=== PATIENT | male | born 1950 | race Caucasian/White ===

== ENCOUNTER 2022-06-02 12:10 | Emergency (ER) | payer MEDICARE, SELFPAY ==
[2022-06-02] VITALS (11 sets, daily range): BP systolic 114–131; BP diastolic 64–84; PULSE 0–86; RESP 11–27; TEMP 36.4; O2SAT 96–100
--- NOTE | ~2022-06-02 | XR_ITS ---
EXAMINATION: XR chest 2V Exam Date/Time: 06/02/2022 19:55 GEOGRAPHIC INFORMATION SYSTEM SURVEYOR HISTORY: cough, SOB, fever Comparison: None available. RESULT: Lines, tubes, and devices: None. Lungs and pleura: Relative areas of lucency in the upper and mid lungs with peripheral reticular opa cities and bilateral medial lower lung atelectasis/scar. No focal consolidation. No pneumothorax. Cardiomediastinal silhouette: Stable. Other: No acute osseous or upper abdominal finding. IMPRESSION: Chronic appearing senescent and possibly emphysematous changes without definite acute cardiopulmonary process. Reviewed, dictated and finalized at location K. RAPHIC INFORMATION SYSTEM SURVEYOR
--- NOTE | 2022-06-02 19:26 | ECG_ITS ---
Measurements Intervals [place] Rate: 65 P: 26 VA: 132 QRS: -34 QRSD: 89 T: 27 QT: 396 QTc: 412 Interpretive Statements SINUS RHYTHM BASELINE ARTIFACT LEFT AXIS DEVIATION LOW-VOLTAGE QRS IN PRECORDIAL LEADS BORDERLINE ECG NO PREVIOUS ECG AVAILABLE FOR COMPARISON Electronically Signed On 06-05-2022 17:35:47 [employer] by Maikol Dc M.D.
--- NOTE | 2022-06-02 19:27 | ED.GENADULT ---
HPI - General Adult General Chief complaint: Dizziness Stated complaint: dizziness x 4 days, sore throat, cough Time Seen by Provider: 06/02/22 19:20 History of Present Illness HPI narrative: Patient is a 72-year-old male here for evaluation of productive cough, chills, fatigue and body aches for the past 4 days. Denies sick contacts. He has not taken his temperature at home. States that he sometimes feels short of breath when he coughs. Has not attempted any medicine for symptoms. He did develop some indigestion type pain while sitting in the waiting room. Related Data Home Medications Medication Instructions Recorded Confirmed multivitamin 1 tablet PO DAILY 04/08/19 05/25/22 finasteride 1 mg tablet 1 mg PO DAILY 11/08/20 05/25/22 Allergies Allergy/AdvReac Type Severity Reaction Status Date / Time No Known Allergies Allergy Verified 06/02/22 12:30 Review of Systems Review of Systems: Gen.: Reports chills Eyes: Denies eye pain or visual change ENT: Reports congestion and sore throat Respiratory: Reports shortness of breath and cough CV: Denies chest pain or palpitations GI: Denies abdominal pain nausea, emesis or diarrhea denies burning, urgency, frequency or hematuria Musculoskeletal: Denies back pain or muscle pain Neuro: Denies numbness, tingling, weakness or focal weakness Skin: Denies rash Except as documented, all other systems reviewed and negative [facility] Past Medical History Medical History (Updated 06/02/22 @ 20:34 by Ashli Avalos PA-C) BPH (benign prostatic hyperplasia) Drinks hard liquor Elevated prostate specific antigen [PSA] Family History Family History Father Family history of malignant neoplasm of thyroid Family history of throat cancer, Onset Age: 66 Patient's father is Other Family history of malignant neoplasm Social History Social History (Updated 05/25/22 @ 14:24 by Ifeoma Marmolejo CMA) Smoking status: Never smoker Second hand tobacco smoke exposure: No Alcohol intake: former Substance use: never Lack of Transportation: No Lack of Food: Never True Current Housing: I Have Housing Concerned About Future Housing: No Difficulty Paying Gas/Electric Bills: No Difficulty Paying for Meds: No Currently Unemployed: No Education: Bachelor's Degree Difficulty w/ Childcare or Family Care: No Gender identity (if verbalized by the patient): Male Exam Narrative: APPEARANCE: Well appearing, no pain in distress, well-nourished. Head: Normocephalic and atraumatic. EYES: PERRLA/EOMI, conjunctivae clear NOSE: No nasal drainage EARS: External ear normal in appearance THROAT: Mucous membranes are dry. Posterior oropharynx is erythematous. NECK: Supple. No adenopathy, no masses. RESPIRATORY: Airway patent, respirations nonlabored. Clear to auscultation bilaterally, no rales, rhonchi, wheezing. CARDIOVASCULAR: Regular rate and rhythm without murmurs, rubs, or gallops. ABDOMINAL: Normoactive bowel sounds. Soft, nontender, nondistended. No rebound tenderness or guarding. MUSCULOSKELETAL: Extremities are warm and well-perfused. Moves all extremities well. No edema. NEURO: Normal speech. No focal neurologic deficits. SKIN: Skin is warm and dry. No rashes. PSYCHIATRIC: Normal affect/mood. Course Vital Signs Vital signs: Vital Signs Temperature 97.6 F 06/02/22 12:30 Pulse Rate 85 06/02/22 12:30 Respiratory Rate 18 06/02/22 12:30 Blood Pressure 117/64 06/02/22 12:30 Pulse Oximetry 97 06/02/22 12:30 Oxygen Delivery Room Air 06/02/22 12:30 Temperature 97.6 F 06/02/22 12:30 Pulse Rate 64 06/02/22 20:30 Respiratory Rate 18 06/02/22 20:30 Blood Pressure 128/84 06/02/22 20:30 Pulse Oximetry 99 06/02/22 20:30 Oxygen Delivery Room Air 06/02/22 12:30 Medical Decision Making MDM Narrative Medical decision making narrative: Aleah
[2022-06-02 19:44] LABS: Basophils Percent Auto 0.4 % (0.2-1.2); Hematocrit 40.6 % (42.0-52.0); Hemoglobin 13.3 g/dL (14.0-18.0); Immature Granulocyte Absolute 0.01 K/mm3 (0.00-0.031); Immature Granulocyte Percent A 0.2 % (0-0.5); Lymphocytes Absolute Auto 1.06 K/mm3 (0.9-3.2); Lymphocytes Percent Auto 22.2 % (18.3-44.2); Mean Corpuscular HGB Conc 32.8 g/dl (32-36); Mean Corpuscular Hemoglobin 29.5 pg (26-34); Mean Platelet Volume 10.8 fl (7.4-10.4); Monocytes Absolute Auto 0.5 K/mm3 (0.1-0.6); Monocytes Percent Auto 11.3 % (2.6-8.5); Neutrophils Absolute Auto 3.1 K/mm3 (1.3-6.7); Neutrophils Percent Auto 65.9 % (45.5-73.1); Platelet Count Result 190 k/mm3 (150-375); Red Blood Count 4.51 M/mm3 (4.6-6.20); Red Cell Distribution Width 13.1 % (11.5-14.5); White Blood Count 4.8 K/mm3 (4.5-10.0)
[2022-06-02] MEDS: SODIUM CHLORIDE 0.9% IV 1,000 ML 999 ML IV CONT (19:51)
[2022-06-02] MEDS: ACETAMINOPHEN 325 MG TABLET 650 MG PO (19:51)
[2022-06-02 19:59] LABS: Alanine Aminotransferase 27 U/L (6-50); Albumin Level 4.2 g/dL (3.5-5.1); Alkaline Phosphatase 74 U/L (38-126); Anion Gap 7 mmol/L (8-16); Aspartate Amino Transferase 42 U/L (17-59); Bilirubin,Total 0.6 mg/dL (0.2-1.3); Blood Urea Nitrogen 21 mg/dL (9-20); Calcium 8.9 mg/dL (8.4-10.2); Carbon Dioxide 31 mmol/L (22-30); Chloride 97 mmol/L (98-107); Estimated CRCL calculation 71 ml/min; Estimated Glomerular Filt Rate > 60; Glucose 105 mg/dL (65-110); Potassium 3.9 mmol/L (3.4-5.0); Sodium 135 mmol/L (137-145)
[2022-06-02 20:11] LABS: Troponin I < 0.012 ng/mL (0.000-0.034)
[2022-06-02 20:29] LABS: Influenza A QL RT-PCR Positive (Negative); Influenza B QL RT-PCR Negative (Negative); SARS-CoV-2 RNA PCR Negative
== END 2022-06-02 21:23 | disposition home or self-care (01) ==
PROVIDERS: Emergency Provider Physician Assistant; PCP Internal Medicine
DX: J10.1 Influenza due to other identified influenza virus with other respiratory manifestations (principal); Z20.822 Contact with and (suspected) exposure to COVID-19; N40.0 Benign prostatic hyperplasia without lower urinary tract symptoms
CPT/HCPCS: 36415; 71046; 80053; 84484; 85025; 87636; 93005; 96360; 99284; A9270; J7030

== ENCOUNTER 2024-12-22 11:24 | Outpatient (CLI) | payer MEDICARE, SELFPAY ==
--- OUTSIDE RECORDS SUMMARY | 2024-12-22 11:40 | XMS_ITS | Continuity of Care Document ---
Author Organization [facility] Address [address] [place] [address] [address] [place] [address] Phone Care Team Providers Care Cafeteria Team Leader Name Role Phone Gracie Malloy Unavailable Unavailable Procedures Procedure Date Office/outpatient Visit, Est Eye Exam, New Patient Advance Directives Directive Yes / No Effective Date File Name No Information Encounters Encounter Description Practice Location Reason(s) For Visit Diagnoses Date Provider Providers Copied on Encounter Office/outpat ient Visit, Est [facility], [address] [place] [address] [address], [place], [place], [id number], tel:[phone] [facility] No Information 0-[address]man. [address] , [address], [place], [place], [facility], [place]. tel:[phone] [facility], [address] [place] [address] [address], [place], [place], [id number], tel:[phone] [facility] No Information [address] , [address], [place], [address], [place]. tel:[phone] Family History Family Member Type Diagnosis Age At Onset No Information Payers Payer name Insurance type Covered libertarian ID Authoriza tion(s) No Information Social History Type Description Quantity Date Captured Comments Sex Male Smoking Status No Information Chief Complaint And Reason For Visit No Information Reason For Referral Reason For Referral No Information History Of Present Illness Encounter Date Complaint History Of Prese nt Illness No Information Functional Status Date Functional Assessmen t No Information Instructions Date Instruction Additional Infor mation No Information Assessments Type Assessment Date No Information Patient Care Teams Name Effective Dates (start - stop) Status Members No Information
--- OUTSIDE RECORDS SUMMARY | 2024-12-22 11:40 | XMS_ITS | Clinical Summary ---
Author Organization [facility] Address [address] [place] [address] Care Team Providers Care Power Reactor Supervisor Name Role Phone Steve Gomez DO Primary Care Provider [phone] Jeana Currie MD Unavailable [phone] Source Comments [facility],non-owned Affiliates and Associated Physician Practices is amultiple site organization consisting of ambulatory clinics and hospital sitesin [place], [place], [place] and [place]. This disclosure is being madepursuant to the Care Everywhere program and may not contain all information available regarding this patient. Last updated 18.[facility] Allergies No known active allergies Medications * Be aware that medications may not be up to date on this document. Alwaysverify current medications with the patient. Multiple Vitamins-Minera ls (MULTIVITAMIN ADULTS PO) Active omeprazole (PriLOSEC) 20 MG capsule 3 Active triamcinolone acetonide (Kenalog) 0.1 % cream Apply 1 Application to affected area 2 times daily 4 Active tamsulosin (Flomax) 0.4 MG capsule Take 1 (one) capsule by mouth 2 times daily At the same time every day after a meal. 180 capsule 3 4 Active finasteride (Proscar) 5 MG tablet Take 1 (one) tablet by mouth once daily 90 tablet 3 4 Active Active Problems Problem Noted Date Diagnosed Date Prostate cancer 06/29/2022 Cancer Staging:Clinical stage from 06/29/2022:Stage I(cT1c, cN0, cM0, PSA: 8.7, Grade Group: 1) - Signed by Mendoza Casanova MD on 06/29/2022 Family History Medical History Relation Name Comments Cancer - Prostate Brother Cancer - Thyroid Father Hypertension Mother Relation Name Status Comments Brother Alive Father Mother Social History Tobacco Use Types Packs/Day Years Used Date Smoking Tobacco: Never Smokeless Tobacco: Never Tobacco Cessation:Counseling Given: Not Answered Alcohol Use Standard Drinks/Week Comments Yes 0 (1 standard drink = 0.6 oz pur e alcohol) occasional AUDIT-C Answer Date Recorded Q1: How often do you have a drink containing alc ohol? 2-3 times a week 08/22/2022 Q2: How many drinks containi ng alcohol do you have on a typical day when you are drinking? 1 or 2 08/22/2022 Q3: How often do you have si x or more drinks on one occasion? 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 Not on file Not on file Not on file Last Filed Vital Signs Vital Sign Reading Time Taken Comments Blood Pressure 134/84 04/07/2024 10:38 AM CDT Pulse 81 04/07/2024 10:38 AM CDT Temperature 36.4 C (97.6 F) 08/22/2022 8:55 AM CDT Respiratory Rate 16 08/22/2022 8:55 AM CDT Oxygen Saturation 93% 04/07/2024 10:38 AM CDT Inhaled Oxygen Concentration - - Weight 94.3 kg (208 lb) 04/07/2024 10:38 AM CDT Height 185.4 cm (6' 1) 04/07/2024 10:38 AM CDT Body Mass Index 27.44 04/07/2024 10:38 AM CDT Plan of Treatment Health Maintenance Due Date Last Done Comments HEPATITIS C SCREENING 01/31/1966 DTAP/TDAP/TD VACCINES (1 - Tdap) 02/04/1967 PNEUMOCOCCAL VACCINE 50+ (1 of 1 - PCV) 02/04/1998 ZOSTER VACCINE (1 of 2) 02/04/1998 Respiratory Syncytial Virus (RSV) Vaccine Pt: or over 60 yrs (1 - 1-dose 75+ series) 02/04/2023 COVID-19 VACCINE (1 - 2023-2 5 season) 2024 DEPRESSION SCREENING 06/10/2024 06/27/2022 MEDICARE AWV CALENDAR YEAR 2024 INFLUENZA VACCINE (#1) 2025 HEPATITIS B VACCINE Aged Out No longe r eligible based on patient's age to complete this topic HIB VACCINE Aged Out No longer eligi ble based on patient's age to complete this topic HPV VACCINE Aged Out No longer eligi ble based on patient's age to complete this topic MENINGOCOCCAL (Group B) VACC INE SHARED DECISION-MAKING Aged Out No longer eligibl e based on patient's age to complete this topic MENINGOCOCCAL GROUPS A/C/Y/W VACCINE Aged Out No longer eligible b ased on patient's age to complete [place] [address] AETNA MEDICARE ADV Care Teams Power Reactor Supervisor Relationship Specialty Start Date End Date Steve Gomez DO [address] [place], [place] [phone] PCP - General Internal Medicine 07/18/22 Jeana Currie MD [facility] [address] [place] [phone] Physician Urology 09/13/23
== END 2024-12-22 11:25 | disposition home or self-care (01) ==
PROVIDERS: PCP Nurse Practitioner; Visit Provider Surgery
DX: Z01.818 Encounter for other preprocedural examination (principal); K40.90 Unilateral inguinal hernia, without obstruction or gangrene, not specified as recurrent
CPT/HCPCS: 36415; 86850; 86900; 86901

== ENCOUNTER 2024-12-25 00:24 | Day surgery (SDC) | payer MEDICARE, SELFPAY ==
--- NOTE | 2024-12-21 10:59 | PC.NURSE ---
Report to the Outpatient Waiting Room, entrance under the green pavilion located off [facility], at time _10 AM on date __12/25/24 . Planned Procedure Time: _1200 NOON .? Time changes happen often and if your time is changed the preop area will call you the afternoon before. - You and your visitor will be asked to self-screen and do not enter if you have any COVID symptoms. Please call surgeon if you need to reschedule. - A mask is optional within the hospital at this time. Patients may have clear liquids (water, carbonated beverages, clear teas, apple juice) until 3 hours prior to surgery ( 9AM) with a maximum of 20 ounces. - No food from midnight until time of surgery and no smoking, or chewing tobacco (or any form of nicotine). No chewing gum, candy or mints. Take only the following medications with a SIP of water on the morning of surgery: NONE DO NOT STOP ANY OF YOUR OTHER PRESCRIPTION MEDICATIONS PRIOR TO SURGERY EXCEPT THE FOLLOWING Hold all vitamins and supplements for 3 days per anesthesiologist.LAST DOSE 12/21/24 Medications to discontinue per physician NONE Please no make-up, nail lao, hairspray, perfume, deodorant, or body powder the day of surgery.? No jewelry (including any body piercings) or valuables the day of surgery, leave them at home.? Please take a shower or bath the night before, or the morning of, surgery with an antibacterial soap.? Wear comfortable, loose fitting clothing.? Children are encouraged to wear pajamas. - Jewelry must be removed prior to entering the operating room.? Rings and piercings that are not removed may be cut off. - The hospital will not accept responsibility for valuables.? - Please leave all valuables, including medications, at home the day of surgery. If you are going home after surgery, a licensed sales driver must drive you home.? - NO public transportation without another adult if you receive anesthesia. - We recommend that an adult stay with you for 24 hours following discharge. - We also recommend that you do not drive, make important decision, drink alcoholic beverages, or take any drugs that were not prescribed by your health care provider for at least 24 hours after your discharge time. For Pediatric surgeries, we recommend two adults accompany the child home. Follow any additional instructions given to you from your surgeon. Telephone instructions given to __PATIENT and asked if any additional questions and then verbalized understanding. Patient advised to call surgeon office or pre surgery nurse liaison [phone] if any additional questions.
[2024-12-21 11:14] VITALS: BMI 27.7
[2024-12-25] VITALS (10 sets, daily range): BP systolic 116–146; BP diastolic 60–86; PULSE 63–80; RESP 12–18; TEMP 36.3–36.8; O2SAT 94–100; BMI 26.6
--- OUTSIDE RECORDS SUMMARY | 2024-12-25 00:26 | XMS_ITS | Clinical Summary ---
Author Organization [facility] Address [address] [place] [address] Care Team Providers Care Academic Adviser Name Role Phone Steve Gomez DO Primary Care Provider [phone] Jeana Currie MD Unavailable [phone] Source Comments [facility],non-owned Affiliates and Associated Physician Practices is amultiple site organization consisting of ambulatory clinics and hospital sitesin [place], [place], [place] and [place]. This disclosure is being madepursuant to the Care Everywhere program and may not contain all information available regarding this patient. 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
--- OUTSIDE RECORDS SUMMARY | 2024-12-25 00:26 | XMS_ITS | Continuity of Care Document ---
Author Organization [facility] Address [address] [place] [address] [address] [place] [address] Phone Care Team Providers Care Jukebox Operator Name Role Phone Gracie Malloy Unavailable Unavailable Procedures Procedure Date Office/outpatient Visit, Est Eye Exam, New Patient Advance Directives Directive Yes / No Effective Date File Name No Information Encounters Encounter Description Practice Location Reason(s) For Visit Diagnoses Date Provider Providers Copied on Encounter Office/outpat ient [facility], [address] [place] [address] [address], [place], [place], [id number], tel:[phone] [facility] No Information 0-[address] Mell[address]. [address] , [address], [place], [place], [facility], [place]. tel:[phone] [facility], [address] [place] [address] [address], [place], [place], [id number], tel:[phone] [facility] No Information [address] , [address], [place], [address], [place]. tel:[phone] Family History Family Member Type Diagnosis Age [...]
--- NOTE | 2024-12-25 10:31 | WPDANESEPPF ---
Anes - Initial Pre Proc Eval Procedure: Operation Date: 12/25/24 12:00 Proposed Procedures p Robotic Assisted Laparoscopic Right Inguinal Hernia Repair with Mesh - Prosepr Michelle MD Date/Time: 12/25/24 10:31 Surgeon: Prosper Michelle MD Pre Op Diagnosis: Rt Ing Hernia Patient Data Age: 74 Gender: M Height: 1.85 m Weight: 95.35 kg Allergies Allergy/AdvReac Type Severity Reaction Status Date / Time No Known Allergies Allergy Verified 12/21/24 10:59 Home Medications ?Medication ?Instructions ?Recorded ?Confirmed ?Type multivitamin 1 tablet PO DAILY 04/08/19 12/21/24 History finasteride 1 mg tablet 1 mg PO DAILY 11/08/20 12/21/24 History ascorbate calcium (vitamin C) 500 500 mg PO DAILY 03/03/24 12/21/24 History mg tablet zinc acetate 25 mg (zinc) capsule 25 mg PO DAILY 03/03/24 12/21/24 History (Galzin) finasteride 5 mg tablet 5 mg PO DAILY 12/21/24 12/21/24 History tamsulosin 0.4 mg capsule (Flomax) 0.4 mg PO BID 12/21/24 12/21/24 History Patient hx anesthesia problems: none Family hx anesthesia problems: none Results Review: All pre-operative results and documents have been reviewed as part of the pre-operative evaluation. [facility] Past Medical History Medical History (Updated 11/17/24 @ 10:46 by Mima Varghese CMA) Elevated prostate specific antigen [PSA] Drinks hard liquor BPH (benign prostatic hyperplasia) Surgical History Surgical History (Updated 11/17/24 @ 10:25 by Donna Jamison MA) H/O left inguinal hernia repair Family History Family History Father Family history of malignant neoplasm of thyroid Family history of throat cancer, Onset Age: 66 Patient's father is Other Family history of malignant neoplasm Social History Social History (Updated 11/17/24 @ 10:26 by Donna Jamison MA) Smoking status: Never smoker Second hand tobacco smoke exposure: No Alcohol intake: current Drinks per week: 4 Substance use: never Substance use type: does not use Lack of Transportation: No Lack of Food: Never True Current Housing: I Have Housing Concerned About Future Housing: No Difficulty Paying Gas/Electric Bills: No Difficulty Paying for Meds: No Currently Unemployed: No Education: Bachelor's Degree Difficulty w/ Childcare or Family Care: No Living arrangements: with family Occupation/Education: occupation Gender identity (if verbalized by the patient): Male Spiritual care concerns: No Agree to blood products: Yes Anes - Eval Final PreProcedure Day of Procedure 12/25/24 10:31 Patient weight: overweight Heart: regular rate and rhythm Lungs: clear to auscultation Airway: Mallampati scale class III Neurological: alert and oriented Last oral intake: >/= 8 hours ASA classification: II Emergent: no Anesthetic plan: proceed Anesthesia type and monitoring: general ETT and standard monitoring Results Review: All pre-operative results and documents have been reviewed as part of the pre-operative evaluation. Informed Consent: The patient's anesthetic plan and its attendant risks and benefits were discussed with the patient/family/POA. Questions were solicited and answers provided to the satisfaction of the patient/family/POA.
[2024-12-25] MEDS: LACTATED RINGERS 1,000 ML 30 ML IV CONT ×3 (10:50→17:28)
[2024-12-25] MEDS: ACETAMINOPHEN 500 MG TABLET 1000 MG PO (10:58)
[2024-12-25] MEDS: KETOROLAC 15 MG/ML VIAL (*BKC) IV PUSH (10:58)
--- NOTE | 2024-12-25 12:07 | PM.IMHP ---
H&P: HPI History of Present Illness Date/Time: 12/25/24 12:07 Chief Complaint: Right inguinal hernia Narrative: Dane is a 74 y/o male who presents to the office at the request of Ignacio Weston APRN for an evaluation of a bulge in the groin. Patient reports he has had a reducible bulge in the right groin for approximately 2 months. He reports an intermittent burning pain in the right groin and swelling. He states he tolerates a normal diet and having regular BM's. Patient has history of left inguinal hernia repair and is also undergoing treatment for his prostate. Review of Systems Review of Systems: The remainder of the review of systems to include constitutional, HEENT, cardiovascular, respiratory, GI, , integumentary, musculoskeletal, endocrine, immunologic, hematologic, psychiatric, and neurologic are all negative except for which is mentioned above in the HPI. [facility] Past Medical History Medical History Elevated prostate specific antigen [PSA] Drinks hard liquor BPH (benign prostatic hyperplasia) Surgical History Surgical History H/O left inguinal hernia repair Family History Family History Father Family history of malignant neoplasm of thyroid Family history of throat cancer, Onset Age: 66 Patient's father is Other Family history of malignant neoplasm Social History Social History Smoking status: Never smoker Second hand tobacco smoke exposure: No Alcohol intake: current Drinks per week: 4 Substance use: never Substance use type: does not use Lack of Transportation: No Lack of Food: Never True Current Housing: I Have Housing Concerned About Future Housing: No Difficulty Paying Gas/Electric Bills: No Difficulty Paying for Meds: No Currently Unemployed: No Education: Bachelor's Degree Difficulty w/ Childcare or Family Care: No Living arrangements: with family Occupation/Education: occupation Gender identity (if verbalized by the patient): Male Spiritual care concerns: No Agree to blood products: Yes Meds Home Medications and Allergies Home Medications ?Medication ?Instructions ?Recorded ?Confirmed ?Type multivitamin 1 tablet PO DAILY 04/08/19 12/25/24 History ascorbate calcium (vitamin C) 500 500 mg PO DAILY 03/03/24 12/25/24 History mg tablet zinc acetate 25 mg (zinc) capsule 25 mg PO DAILY 03/03/24 12/25/24 History (Galzin) finasteride 5 mg tablet 5 mg PO DAILY 12/21/24 12/25/24 History tamsulosin 0.4 mg capsule (Flomax) 0.4 mg PO BID 12/21/24 12/25/24 History Allergies Allergy/AdvReac Type Severity Reaction Status Date / Time No Known Allergies Allergy Verified 12/25/24 11:29 Vital Signs Vital Signs - 24 hr 12/25/24 10:01 Temperature 36.3 C L Pulse Rate 79 Respiratory Rate 14 Blood Pressure 139/80 Pulse Oximetry 97 Oxygen Delivery Room Air Exam Const: General: comfortable and no acute distress HENMT: Ears: TM's normal bilaterally Face/Nose/Sinus: Normal nares present Mouth: Yes moist mucous membranes Eyes: General: appearance normal, both eyes and all related structures Sclera: sclerae normal Pupils: Equal, round and reactive pupils present EOM: EOMs intact bilaterally Neck: Neck: supple and no JVD Resp: Effort & Inspection: normal respiratory effort Auscultation: clear to auscultation bilaterally Cardio: Rate: regular rate Rhythm: regular rhythm GI: GI Palp: Yes Soft to palpation, No Firmness to palpation present (GI), No Tenderness to palpation present (GI), No Guarding due to palpation present (GI) and No Hernia present : Other: Bilateral descended testes, no masses. No evidence of left inguinal hernia. Moderate sized reducible right inguinal hernia. Skin: General skin exam: normal color and no rashes or lesions noted Neuro: General: gait normal Speech: normal speech Motor exam (neuro): 5/5 motor strength present throughout Sensory Exam: normal sensation Extrem: General: normal to inspection Psych: Mental Status: mental status grossly normal Affect: normal affect Assessment and Plan Assessment and plan (1) Right inguinal hernia: Code(s): K40.90 - Unilateral inguinal hernia, without obstruction or gangrene, not specified as recurrent Status: Acute Assessment and Plan: I have reviewed office notes from Ignacio Weston APRN prior to patient visit today. I have recommended a robotic assisted laparoscopic right inguinal hernia repair with mesh to be done under general anesthesia as an outpatient. The procedure was discussed in detail including the use of mesh, general description, and usual course of recovery. Risks of recurrence, infection, postop bleeding, prolonged postop pain, possible need to return to surgery were discussed as well. All questions were answered. Patient would like to proceed. Follow-up 2 weeks postoperatively.
--- NOTE | 2024-12-25 12:10 | WPDHPUPDATE1 ---
History and Physical Update Update Date/Time: 12/25/24 12:10 History and Physical has been reviewed, including an updated exam of the patient. There are NO changes in the patient's condition. Risks, benefits, and alternatives have been discussed and questions answered. Patient agrees to proceed with procedure.
[2024-12-25] MEDS: ceFAZolin 2 GM in SODIUM CHLORIDE 0.9% IV 50 ML 100 ML IVPB (13:48)
[2024-12-25] MEDS: BUPivacaine HCL 0.5% 10 ML AMP 30 ML INFILTRATE (14:26)
[2024-12-25] MEDS: LIDO 1%/EPINEPHRINE 1:100,000 20 ML VIAL 30 ML INFILTRATE (14:26)
--- NOTE | 2024-12-25 16:50 | W.PM.PROC2 ---
Procedure Note - Detailed Date of Procedure 12/25/24 Pre-op Diagnosis Reducible right inguinal hernia Post-op Diagnosis Other ( Reducible right inguinal hernia and reducible umbilical hernia) Procedure Performed Robotic assisted laparoscopic right inguinal hernia repair a Bard 3D mid weight mesh Open umbilical hernia repair without mesh. Surgeon Prosper Michelle MD Upholstery Technician Taylor KIMBLE, Celsa KIMBLE Anesthesia General Indications patient is a 74-year-old gentleman who had a previous left inguinal hernia repair with mesh open now presents with a right groin bulge and on exam appears to have a reducible right inguinal hernia. He presents now for robotic assisted laparoscopic right inguinal hernia repair with Bard 3D mesh. Findings Patient moderate-sized indirect right inguinal hernia with large cord lipoma but no incarcerated abdominal viscera. Also noted was a 1cm primary umbilical hernia without incarceration. No evidence of a recurrent left inguinal hernia was seen. Old mesh from the left inguinal hernia repair was noted and in good position. Description of Procedure After informed consent was obtained patient brought to the operating room was placed supine position and general endotracheal anesthesia was administered. The abdomen and bilateral groin regions were then prepped and draped usual sterile fashion. A time-out was then performed correctly identifying the patient as well as procedure to be performed. Site marking was verified he was given perioperative IV antibiotics. I 1st started by entering the abdomen the left upper quadrant utilizing a 5mm Optiview port. Once inside the abdomen insufflated to adequate pneumoperitoneum of 15mmHg of CO2. I had a unobstructed view of the bilateral groins and on the left side there was old mesh in place and a prior open left inguinal hernia repair which had no evidence of recurrence. On the right side there was a indirect right inguinal hernia without incarcerated abdominal viscera. Also noted was a small umbilical hernia with a defect measuring about 1cm which had some preperitoneal fat within it. I then proceeded to place a robotic trocar ports across the mid abdomen under direct visualization. I then switched out the 5mm left upper quadrant trocar port to a 10mm bedside wet process miller head assistant trocar port. The [employer]us robot was then brought to the patient's bedside and docked. Robotic arms were attached robotic ports in the robotic instruments were advanced into the abdomen under direct visualization. I then scrubbed out the procedure sent down at the robotic console to perform the dissection. Utilizing robotic hook cautery I created a preperitoneal flap in the right lower abdominal wall extending the dissection in this preperitoneal plane distally until I encountered the internal ring and the indirect inguinal hernia sac. I then continued dissection of the preperitoneal flap medially and divided the right median umbilical ligament. I then dissected medially down to I reached the pubic tubercle and dissected the bladder away from the right pubic tubercle and pubic symphysis. I dissected down to the space of Retzius for a couple of cm. I then came back and dissected out the indirect inguinal hernia sac out of the inguinal canal. Along with the indirect inguinal hernia sac was a large cord lipoma which was dissected out as well. The cord lipoma was amputated electrocautery and then it was placed into an Endo-Catch bag and brought out through the left upper quadrant trocar port site. The tissue was discarded. I then proceeded to dissect the peritoneal flap proximally up onto the psoas muscle. Vas deferens and testicular vessels were preserved without injury. Once I had the peritoneum dissected proximal enough that I was satisfied the mesh would not roll up with closure of the peritoneum I then chose a piece of Bard 3D mid weight mesh measuring [id number] oriented for the right groin region. It was then placed into the abdomen through the bedside wet process miller head assistant trocar port site and placed into the dissected space in the right groin region. The mesh was then secured at the pubic tubercle by placing a 2-0 Vicryl suture and securing the mesh to the tissue around the right pubic tubercle. Laterally the mesh was secured to the muscle anterior medial to the right anterior superior iliac spine. An additional suture was then placed approximate the mesh to the potential direct space muscle. The mesh laid out very nicely covering the whole myopectineal orifice covering the direct, indirect, and femoral spaces. I then proceeded to close the peritoneal flap. This is done with a running absorbable 2-0 V lock suture. No holes were made in the peritoneal flap and once the peritoneum was closed the viscera was completely excluded from touching the mesh. I then checked under was no bleeding. All the bowel appeared to be normal without injury. I then proceeded to remove the robotic instruments from the abdomen and the [employer]us robot was undocked from the patient's bedside. I then proceeded to close the 8mm right lateral abdominal trocar port site since the trocar had pulled back outside the abdomen and dilated the fascial defect. This is done with a 0 Vicryl suture placed transfascially with the suture assist device under laparoscopic guidance. The 10mm left upper quadrant trocar port was also closed with 0 Vicryl suture to close that fascial defect. The port site incisions were then closed at the skin level utilizing a running subcuticular 4 Monocryl suture. I then turned my attention towards repairing the small umbilical hernia defect. A small curved incision was made just in the upper portion of the umbilical fold. Dissection was then carried down through the dermis skin and down through the subcutaneous tissue electrocautery. I then encountered the fascial defect and reduced the small amount of preperitoneal fat within the defect. The defect measured approximately 1cm at the fascia. I did not need to disconnect the umbilical stalk the fascia and then I proceeded to place 3 separate interrupted 0 Ethibond sutures to close the defect without any tension. There was no need to use any mesh. Incision was then irrigated sterile saline solution and hemostasis was good. I then closed the umbilical incision utilizing interrupted 3-0 Vicryl sutures in subcutaneous tissues the skin edges were approximated utilizing a running subcuticular 4-0 Monocryl suture. Incision was cleaned the skin glue was applied. The patient tolerated the procedure well no complications. All sponges, needles, and instrument counts were correct at the end procedure. EBL was _25__cc. The patient was awakened and taken to recovery in stable and satisfactory condition. Implants Bard 3D mid weight mesh [id number] placed in the right groin Estimated Blood Loss 25 Drains No Packing No Pathology None sent Complications No immediate complications Condition Stable Disposition PACU [facility] Billing Surgery - Charge Forward: Surgery Billing
[2024-12-25] MEDS: fentaNYL CITRATE INJ (*CRX) 100 MCG/2 ML VIAL 25 MCG IV PUSH ×4 (17:18→17:31)
[2024-12-25] MEDS: oxyCODONE HCL (*CRX) 5 MG TAB IR PO (18:07)
== END 2024-12-25 19:14 | disposition home or self-care (01) ==
PROVIDERS: PCP Nurse Practitioner; Visit Provider Surgery
PROC: 8E0Y4CZ Robotic Assisted Procedure of Lower Extremity, Percutaneous Endoscopic Approach (ICD-10-PCS; CPT 49650; principal; 2024-12-25 12:00)
DX: K40.90 Unilateral inguinal hernia, without obstruction or gangrene, not specified as recurrent (principal); D17.6 Benign lipomatous neoplasm of spermatic cord; K42.9 Umbilical hernia without obstruction or gangrene
CPT/HCPCS: 49650; 49591; S2900; 36415; 86850; 86900; 86901; J0690; A9270; C1781; J1100; J1885; J2004; J2405; J2704; J3010; J7120